=== PATIENT | male | born 1930 | race Caucasian/White ===

== ENCOUNTER 2018-12-01 12:51 | Observation (INO) | payer OTHER, MEDICARE ==
[~2018-12-01] VITALS: Ht 175.3 cm; Wt 61.8 kg
[2018-12-01] MEDS ORDERED: ACYC200 PO (14:11)
[2018-12-01] MEDS ORDERED: ATOR40TA PO (14:12)
[2018-12-01] MEDS ORDERED: Biotin1 MG PO (14:12)
[2018-12-01] MEDS ORDERED: Norvasc2.5 MG PO (14:12)
[2018-12-01] MEDS ORDERED: PRAZ1 PO (14:13)
[2018-12-01] MEDS ORDERED: OMEPRAZOLE20 MG PO (14:13)
[2018-12-01] MEDS ORDERED: Zantac150 MG PO (14:13)
[2018-12-01 14:14] LABS: BASOPHILS ABSOLUTE AUTO 0.05 K/mm3 (0.00-0.23); BASOPHILS PERCENT AUTO 1 % (0-2); EOSINOPHILS ABSOLUTE AUTO 0.16 K/mm3 (0.00-0.68); EOSINOPHILS PERCENT AUTO 4 % (0-6); Hematocrit 36.8 % (37.0-53.0); Hemoglobin 12.3 g/dL (13.5-17.5); IMMATURE GRAN ABSOLUTE AUTO 0.01 K/mm3 (0.00-0.10); IMMATURE GRAN PERCENT AUTO 0 % (0-1); LYMPHOCYTES PERCENT AUTO 23 % (21-46); MONOCYTES ABSOLUTE AUTO 0.51 K/mm3 (0.16-1.47); MONOCYTES PERCENT AUTO 12 % (4-13); Mean Corpuscular HGB 30.8 pg (26.0-34.0); Mean Corpuscular HGB Conc 33.4 g/dL (31.5-36.5); Mean Corpuscular Volume 92 fL (80-100); Mean Platelet Volume 9.5 fL (9.1-12.4); NEUTROPHILS ABSOLUTE AUTO 2.69 K/mm3 (1.96-9.15); NEUTROPHILS PERCENT AUTO 61 % (41-73); Platelet Count 135 K/mm3 (150-400); RDW Coefficient Variation 12.5 % (11.7-14.2); RDW Standard Deviation 42.7 fL (35.1-46.3); White Blood Cell Count 4.42 K/mm3 (4.00-11.30)
[2018-12-01] MEDS ORDERED: TIOT18 INH (14:14)
[2018-12-01 14:33] LABS: Alanine Aminotransfer (ALT/SGP 22 U/L (12-78); Albumin, Blood 3.8 g/dL (3.4-5.0); Albumin/Globulin Ratio 1.3 (0.8-1.8); Alk Phos 114 U/L (50-136); Anion Gap 5 mmol/L (6-16); Aspartate Aminotrans (AST/SGOT 34 U/L (12-37); Bilirubin, Total 0.7 mg/dL (0.1-1.0); Blood Urea Nitrogen 6 mg/dL (8-24); Bun/Creatinine Ratio 7.5 (12.0-20.0); CO2, Blood 25 mmol/L (21-32); Calcium, Blood 8.9 mg/dL (8.5-10.1); Chloride, Blood 103 mmol/L (98-108); Globulin, Blood 2.9 g/dL (2.2-4.0); Glomerular Filtration Rate >60 (60-); Glucose, Blood 100 mg/dL (70-99); Sodium, Blood 133 mmol/L (136-145); Total Protein, Blood 6.7 g/dL (6.4-8.2)
--- NOTE | 2018-12-01 16:44 | NUR ---
RECEIEVED REPORT FROM NAVA PARKINSON RN AT 1640. WILL TRANSFER TO ROOM 336.
--- NOTE | 2018-12-01 18:08 | NUR ---
SHIFT SUMMARY PATIENT IS PLEASANT AND COOPERATIVE WITH STAFF. ASSISTED WITH THE ADMISSION ASSESSMENT. CONTINUES ON IV FLUIDS FOR HYDRATION; NPO. APPROPRIATE WITH STAFF. WAS AT BEDSIDE UPON ADMIT AND HAS LEFT TO A HOTEL FOR THE NIGHT. WILL CONTINUE TO MONITOR AND PROVIDE CARE NEEDED.
--- NOTE | 2018-12-02 06:48 | NUR ---
Rn summary: Patient is alert and oriented. He states he is a little forgetful. Pt has been NPO. Pt is unable to swallow even fluids. Plan is for EGD today with Dr. Baum. Pt denies any pain. Pt has very dry mouth and he uses biotin and lemon swabs. Call light in reach.
--- NOTE | 2018-12-02 13:21 | NUR ---
12/02/18 132[address] [place] PATIENT DETERMINED TO BE ASA APPROPRIATE FOR PROPOFOL SEDATION PRIOR TO START OF PROCEDURE BY DR. Olivia Alexander Placed3-LEAD EKG REVIEWED WITH PHYSICIAN PRIOR TO START OF PROCEDURE.Patient to ENDO 1History, Chart, Medications and Allergies reviewed before start of procedure.MONITOR INTACT WITH CONTINUOUS PULSE OXIMETRY AND INTERMITTENT BP.Dentures removed and placed in cup. O2 VIA N/C INTACT THROUGHOUT SEDATION/PROCEDURE.
--- NOTE | 2018-12-02 13:22 | NUR ---
LUNG SOUNDS CLEAR.
--- NOTE | 2018-12-02 15:53 | NUR ---
PATIENT WANTED IV FLUIDS TURNED OFF BECAUSE HE IS NOW "ABLE TO DRINK". I EXPLAINED TO PATIENT THAT THE DOCTOR HAS NOT DISCONTINUED THE IV FLUIDS AND I NEED TO KEEP THEM RUNNING SO HE STATED THAT HE REFUSES TO HAVE THEM ANY LONGER. DISCONNECTED PATIENT FROM IV LR AR 1550 PER PATIENT REQUEST.
--- NOTE | 2018-12-02 15:56 | NUR ---
SHIFT SUMMARY THE PATIENT HAS HAD AN UNEVENTFUL DAY. WENT FOR AN UPPER SCOPE THIS AFTERNOON WITH DR BUITRAGO WITHOUT COMPLICATIONS. RETURNED TO ROOM AT APPROX 1400 AND SEVERAL SETS OF VITALS OBTAINED AND STABLE. PATIENT REQUESTED IV FLUIDS BE DISCONTINUED NOW THAT HE IS ABLE TO INTAKE ORAL FLUIDS DESPITE BEING EDUCATED THAT THE DOCTOR HAS THE IV FLUIDS ORDERED STILL. IV FLUIDS DISCONNECTED FROM PATIENT PER PATIENT REQUEST. PATIENT GIVEN CHICKEN BROTH AND WATER FOR A SNACK AND WILL HAVE A CLEAR LIQUID DIET FOR DINNER. WILL CONTINUE TO MONITOR AND PROVIDE CARE NEEDED
--- NOTE | 2018-12-02 16:48 | NUR ---
PATIENT CALLED ME INTO HIS ROOM. HE WAS REQUESTING THAT HIS IV ACCESS BE REMOVED SINCE HE IS NO LONGER RECIEVING IV FLUIDS (SINCE HE IS REFUSING THEM). I EXPLAINED I DONT HAVE AN ORDER TO REMOVE IT AND HE INSISTED. I THEN INFORMED THE PATIENT THAT HE HAS AN IMPORTANT MEDICATION DUE IN THE MORNING THAT IS GIVEN IN THE IV FOR THE ACID REFLUX. AT THAT TIME THE PATIENT WAS OKAY WITH LEAVING THE IV IN PLACE.
--- NOTE | 2018-12-03 06:16 | NUR ---
Rn summary: Patient is alert and oriented. Pt is up independantly in room. Pt has denied any discomfort this shift. He has been taking clear liquids without difficulty. Pt states he has slept well. Vital signs are stable. Pt is anxious to be discharged. Call light in reach. Uses appropriaely.
--- NOTE | 2018-12-03 14:30 | NUR ---
PT LEFT UNIT AT 1330 VIA WHEELCHAIR. DISCHARGE INSTRUCTIONS PROVIDED, PERSONAL BELONGINGS WITH PT.
== END 2018-12-03 13:32 | disposition home or self-care (01) ==
LOC: ER 12:51 → MEDS 12:52 → ENPENDDIS 12-03 11:56 → MEDS 12-03 13:32
PROVIDERS: Internal Medicine Gastroenterology; Physician Assistant; ADMIT Family Medicine
PROC: 0D758ZZ Dilation of Esophagus, Via Natural or Artificial Opening Endoscopic (ICD-10-PCS; principal; 2018-12-02 09:00)
DX: R13.10 Dysphagia, unspecified (principal); K21.0 Gastro-esophageal reflux disease with esophagitis; I10 Essential (primary) hypertension; D64.9 Anemia, unspecified; D69.6 Thrombocytopenia, unspecified; E87.1 Hypo-osmolality and hyponatremia; E78.5 Hyperlipidemia, unspecified; J44.9 Chronic obstructive pulmonary disease, unspecified; Z88.0 Allergy status to penicillin; Z79.899 Other long term (current) drug therapy; Z87.891 Personal history of nicotine dependence; Z87.19 Personal history of other diseases of the digestive system; Z90.49 Acquired absence of other specified parts of digestive tract
CPT/HCPCS: 80053; 85025; 94640; 94760; 96360; 96361; 96374; 96376; 99284-25; C1726; C9113; G0378; J2704; J7120

== ENCOUNTER 2020-07-25 21:29 | Observation (INO) | payer OTHER, MEDICARE ==
[~2020-07-25] VITALS: Ht 182.9 cm; Wt 67.9 kg
[~2020-07-25 21:29] MED LIST: ACYC200 PO; ATOR40TA PO; Biotin1 MG PO; Norvasc2.5 MG PO; OMEPRAZOLE20 MG PO; PRAZ1 PO; TIOT18 INH; Zantac150 MG PO
[2020-07-25 23:13] LABS: BASOPHILS ABSOLUTE AUTO 0.02 K/mm3 (0.00-0.23); BASOPHILS PERCENT AUTO 0 % (0-2); EOSINOPHILS ABSOLUTE AUTO 0.02 K/mm3 (0.00-0.68); EOSINOPHILS PERCENT AUTO 0 % (0-6); Hematocrit 31.4 % (37.0-53.0); Hemoglobin 10.4 g/dL (13.5-17.5); IMMATURE GRAN ABSOLUTE AUTO 0.04 K/mm3 (0.00-0.10); IMMATURE GRAN PERCENT AUTO 1 % (0-1); LYMPHOCYTES PERCENT AUTO 5 % (21-46); MONOCYTES ABSOLUTE AUTO 0.49 K/mm3 (0.16-1.47); MONOCYTES PERCENT AUTO 6 % (4-13); Mean Corpuscular HGB Conc 33.1 g/dL (31.5-36.5); Mean Corpuscular Volume 88 fL (80-100); Mean Platelet Volume 9.8 fL (9.1-12.4); NEUTROPHILS ABSOLUTE AUTO 6.93 K/mm3 (1.96-9.15); NEUTROPHILS PERCENT AUTO 88 % (41-73); Platelet Count 158 K/mm3 (150-400); RDW Coefficient Variation 14.3 % (11.7-14.2); RDW Standard Deviation 46.4 fL (35.1-46.3); Red Blood Cell Count 3.59 M/mm3 (4.30-5.90)
[2020-07-25] MEDS ORDERED: Acetaminophen325 M1 PO (23:29)
[2020-07-25 23:31] LABS: Alanine Aminotransfer (ALT/SGP 33 U/L (12-78); Albumin, Blood 2.5 g/dL (3.4-5.0); Albumin/Globulin Ratio 0.7 (0.8-1.8); Alk Phos 248 U/L (50-136); Anion Gap 3 mmol/L (6-16); Aspartate Aminotrans (AST/SGOT 39 U/L (12-37); Bilirubin, Total 0.6 mg/dL (0.1-1.0); Blood Urea Nitrogen 34 mg/dL (8-24); Bun/Creatinine Ratio 40.6 (12.0-20.0); CO2, Blood 29 mmol/L (21-32); Calcium, Blood 8.2 mg/dL (8.5-10.1); Chloride, Blood 98 mmol/L (98-108); Creatinine, Blood 0.84 mg/dL (0.60-1.20); Globulin, Blood 3.4 g/dL (2.2-4.0); Glomerular Filtration Rate >60 (60-); Glucose, Blood 132 mg/dL (70-99); Potassium, Blood 4.6 mmol/L (3.5-5.5); Sodium, Blood 130 mmol/L (136-145); Total Protein, Blood 5.9 g/dL (6.4-8.2)
[2020-07-25] MEDS ORDERED: CITA20 PO (23:31)
[2020-07-25] MEDS ORDERED: DIVA250EC PO (23:31)
[2020-07-25] MEDS ORDERED: FAMO20 PO (23:32)
[2020-07-25] MEDS ORDERED: FURO20 PO (23:32)
[2020-07-25] MEDS ORDERED: TRAM50 PO (23:33)
[2020-07-25] MEDS ORDERED: MELA3 PO (23:33)
[2020-07-25] MEDS ORDERED: TRAZ50 PO (23:34)
--- NOTE | 2020-07-26 04:47 | NUR ---
PATIENT IS A NEW ADMIT FROM THE ED. THREE PERSON TRANSFER FROM [facility] TO BED. ALERT TO SELF. NO MONTH, YEAR, PRESIDENT, OR FACILITY. HX DEMENTIA. REPORTS LEFT SIDE RIB/BACK PAIN WITH MOVEMENT FROM F X TWO AT [facility]. SCAB/BRUISING TO BACK OF HEAD, STERNUM, LEFT SIDE RIBS/BACK, AND SCATTER T/O EXTREMITIES. ON ROOM AIR. VSS/AFEBRILE. DENIES SOB, AND N/V. ORIENTED TO ROOM AND CALL LIGHT SYSTEM. BED ALARM ACTIVATED.
--- NOTE | 2020-07-26 05:09 | NUR ---
URINE SAMPLE COLLECTED AND SENT TO LAB. BED EXIT ATTEMPT X ONE. PATIENT ATTEMPTING TO GET OOB. REPOSITIONED AND ALARM ACTIVATED.
[2020-07-26 05:18] LABS: Source, Urine Clean Catch
[2020-07-26 05:21] LABS: Bilirubin, Urine Neg (Neg); Blood, Urine Neg (Neg); Glucose Qualitative, Urine Neg (Neg); Ketones, Urine Neg (Neg); Leukocyte Esterase, Urine Neg (Neg); Nitrite, Urine Neg (Neg); Protein, Urine 2+ (Neg); Specific Gravity, Urine 1.015 (1.003-1.022); Urobilinogen, Urine NORM (Normal)
[2020-07-26 05:26] LABS: Appearance, Urine Clear (Clear); Bacteria Not Seen /hpf; Color, Urine Yellow (P-Yellow); Other Crystals Few /hpf; Red Blood Cells, Urine Not Seen /hpf (0-2); Squamous Epithelial Cells Not Seen /hpf (Few); White Blood Cells, Urine Rare /hpf (0-5)
[2020-07-26 07:42] LABS: BASOPHILS ABSOLUTE AUTO 0.03 K/mm3 (0.00-0.23); BASOPHILS PERCENT AUTO 0 % (0-2); EOSINOPHILS ABSOLUTE AUTO 0.03 K/mm3 (0.00-0.68); EOSINOPHILS PERCENT AUTO 0 % (0-6); Hematocrit 34.2 % (37.0-53.0); Hemoglobin 11.1 g/dL (13.5-17.5); IMMATURE GRAN ABSOLUTE AUTO 0.05 K/mm3 (0.00-0.10); IMMATURE GRAN PERCENT AUTO 1 % (0-1); LYMPHOCYTES ABSOLUTE AUTO 0.65 K/mm3 (0.84-5.20); LYMPHOCYTES PERCENT AUTO 8 % (21-46); MONOCYTES ABSOLUTE AUTO 0.73 K/mm3 (0.16-1.47); MONOCYTES PERCENT AUTO 9 % (4-13); Mean Corpuscular HGB 28.7 pg (26.0-34.0); Mean Corpuscular HGB Conc 32.5 g/dL (31.5-36.5); Mean Corpuscular Volume 88 fL (80-100); Mean Platelet Volume 9.8 fL (9.1-12.4); NEUTROPHILS ABSOLUTE AUTO 6.44 K/mm3 (1.96-9.15); NEUTROPHILS PERCENT AUTO 81 % (41-73); Platelet Count 183 K/mm3 (150-400); RDW Coefficient Variation 14.4 % (11.7-14.2); RDW Standard Deviation 46.2 fL (35.1-46.3); Red Blood Cell Count 3.87 M/mm3 (4.30-5.90); White Blood Cell Count 7.93 K/mm3 (4.00-11.30)
[2020-07-26 07:55] LABS: Alanine Aminotransfer (ALT/SGP 29 U/L (12-78); Albumin, Blood 2.3 g/dL (3.4-5.0); Albumin/Globulin Ratio 0.7 (0.8-1.8); Alk Phos 235 U/L (50-136); Anion Gap 4 mmol/L (6-16); Aspartate Aminotrans (AST/SGOT 30 U/L (12-37); Bilirubin, Total 0.6 mg/dL (0.1-1.0); Blood Urea Nitrogen 35 mg/dL (8-24); Bun/Creatinine Ratio 39.9 (12.0-20.0); CO2, Blood 29 mmol/L (21-32); Calcium, Blood 8.4 mg/dL (8.5-10.1); Chloride, Blood 98 mmol/L (98-108); Creatinine, Blood 0.88 mg/dL (0.60-1.20); Globulin, Blood 3.5 g/dL (2.2-4.0); Glomerular Filtration Rate >60 (60-); Glucose, Blood 98 mg/dL (70-99); Potassium, Blood 4.8 mmol/L (3.5-5.5); Sodium, Blood 131 mmol/L (136-145); Total Protein, Blood 5.8 g/dL (6.4-8.2)
[2020-07-26 10:05] LABS: International Normalized Ratio 1.35; Prothrombin Time Results 14.3 Sec (9.7-11.5)
--- NOTE | 2020-07-26 12:38 | NUR ---
DR STEPHENS HERE TO SEE PT THIS AM. PER DR STEPHENS, PT CLEAR TO GO BACK TO [facility]. [facility] RN RASHAUN UPDATED. [facility] CALLED BY [facility] RN, TO ARRANGE FOR PT TO RETURN. [facility] TO BE HERE TOMORROW AT 10:30 TO TAKE PT [facility] SIERRA NOTIFIED OF P/U SCHEDULE AND DETAILS. OUR HOSPITALIST IS TO CALL THE HOSPITALIST AT THE [facility], BEFORE PT LEAVES, AND GIVE STATUS UPDATE. DR SIERRA TO CALL DR FAN AT [facility]; [phone], EXT [phone]. [facility] NURSE, CATHERINE, TO NOTIFY DR FAN.
[2020-07-26 15:43] LABS: Hematocrit 35.5 % (37.0-53.0); Hemoglobin 11.5 g/dL (13.5-17.5); Mean Corpuscular HGB Conc 32.4 g/dL (31.5-36.5); Mean Corpuscular Volume 89 fL (80-100); Mean Platelet Volume 9.7 fL (9.1-12.4); Platelet Count 201 K/mm3 (150-400); RDW Coefficient Variation 14.3 % (11.7-14.2); RDW Standard Deviation 46.8 fL (35.1-46.3); Red Blood Cell Count 3.97 M/mm3 (4.30-5.90); White Blood Cell Count 7.97 K/mm3 (4.00-11.30)
--- NOTE | 2020-07-26 16:36 | NUR ---
SHIFT SUMMARY PT RESTING QUIETLY AT START OF SHIFT, BUT WOKE EASILY DURING REPORT. PT IS VERY PLEASANT BUT A&O TO SELF AND ONLY. PT WAS CO-OP MOST OF THE DAY, BUT SEEMS TO BE FEELING A LITTLE BETTER AND IS GETTING OOB FREQUENTLY THS LAST COUPLE OF HOURS. PT ABLE TO WALK WITH P/T AROUND HIS RM TODAY USING FWW AND GB FOR SAFETY. PT HAS BEEN UP TO BSC TO VOID A COUPLE OF TIMES WELL. PT HAS REMAINED CONTINENT OF BOWEL AND BLADDER. PT IS VERY CONFUSED WITH ADVANCED DEMENTIA. PT IS TO RETURN TO [facility] TO BE HERE FOR CANOE MAKER AT 10:30. DR SIERRA TO CALL [facility] HOSPITALIST, DR FAN, PRIOR TO D/C AND PROVIDE UPDATE. PT HAS BEEN ABLE TO FEED HIMSELF, DOING WELL WITH PUREED DIET. TYLENOL GIVEN EARLIER FOR L RIB PAIN. PT ABLE TO BE MORE MOBILE WITH LESS PAIN AFTER TYLENOL. CALL LT IN REACH. BED ALARM ON FOR SAFETY.
--- NOTE | 2020-07-27 01:25 | NUR ---
PATIENT TRYING TO GET OOB ACTIVATING BED ALARM. ALERT TO SELF WITH HX SEVERE DEMENTIA. HAVING AUDITORY HALLUCINATIONS.
--- NOTE | 2020-07-27 01:44 | NUR ---
BED EXIT ATTEMPT ACTIVATING BED ALARM. PATIENT NOT ABLE TO REORIENT REPORTING HE DOES NOT KNOW WHERE HE IS. LEGS BACK IN BED AND REPOSITION AND ALARM ACTIVATED.
--- NOTE | 2020-07-27 03:37 | NUR ---
SHIFT SUMMARY PATIENT HAD NO ACUTE CHANGES OBSERVED. ALERT TO SELF AND ONLY. BEDREST. REPORTING LEFT SIDE RIB PAIN W/MOVEMENT X TWO AND TYLENOL AND FENTANYL 25MCG GIVEN PER EMAR. PIV REMAINS INTACT. CONFUSED WITH ADVANCED DEMENTIA AND MULTIPLE OOB ATTEMPTS T/O SHIFT ACTIVATING BED ALARM. PATIENT NOT ABLE TO REORIENT AT THIS TIME. TOOK MEDICATION WHOLE WITH WATER. DISCHARGE TO [facility] IN AM VIA [place]. DOES NOT USE CALL LIGHT. BED IN LOWEST POSITION AND ALARM ACTIVATED. WILL CONTINUE TO MONITOR UNTIL DAY SHIFT NURSE ASSUMES CARE.
--- NOTE | 2020-07-27 05:00 | NUR ---
PATIENT REPORTS HE IS IN A CAR AND CAN'T GET OUT AND NEEDS HELP. NOT ABLE TO REORIENT AT THIS TIME. BED ALARM ACTIVATED. WILL CONTINUE TO MONITOR. AUDITORY AND VISUAL HALLUCINATIONS.
--- NOTE | 2020-07-27 10:40 | NUR ---
DISCHARGE SUMMARY PATIENT DISCHARGED TO [facility]. PATIENT ALERT TO SELF THIS SHIFT. PATIENT FRIENDLY AND COOPERATIVE WITH CARE. PATIENT WAKES EASILY TO VERBAL STIMULI. PATIENT PAINFUL WHEN MOVED, THEN QUICKLY RETURNS TO STATING NO PAIN AT REST. PATIENT SLEEPING THROUGH MUCH OF THIS AM. PATIENT ALERT AND AWAKE TO TAKE MORNING MEDICATIONS. PATIENT TRANSPORTED VIA GURNEY/AMBULANCE. IV REMOVED PRIOR TO DISCHARGE. PATIENT BELONGINGS WITH PATIENT UPON DISCHARGE.
== END 2020-07-27 10:35 ==
LOC: ER 21:29 → MEDS 21:30 → ENPENDDIS 07-27 08:13 → MEDS 07-27 10:35
PROVIDERS: Emergency Medicine; Hospitalist; Internal Medicine; ADMIT Surgery
DX: S22.42XA Multiple fractures of ribs, left side, initial encounter for closed fracture (principal); S01.91XA Laceration without foreign body of unspecified part of head, initial encounter; S36.031A Moderate laceration of spleen, initial encounter; I11.0 Hypertensive heart disease with heart failure; I50.32 Chronic diastolic (congestive) heart failure; R19.09 Other intra-abdominal and pelvic swelling, mass and lump; I71.2 Thoracic aortic aneurysm, without rupture; F03.90 Unspecified dementia, unspecified severity, without behavioral disturbance, psychotic disturbance, mood disturbance, and anxiety; J81.1 Chronic pulmonary edema; J90 Pleural effusion, not elsewhere classified; I35.0 Nonrheumatic aortic (valve) stenosis; K21.9 Gastro-esophageal reflux disease without esophagitis; Z66 Do not resuscitate; E78.5 Hyperlipidemia, unspecified; F32.9 Major depressive disorder, single episode, unspecified; W18.30XA Fall on same level, unspecified, initial encounter; Y92.192 Bathroom in other specified residential institution as the place of occurrence of the external cause; Z88.0 Allergy status to penicillin; Z88.8 Allergy status to other drugs, medicaments and biological substances; Z87.891 Personal history of nicotine dependence
CPT/HCPCS: 36415; 70450; 71045; 72125; 72128; 73120; 74177; 80053; 81001; 83690; 85025; 85027; 85610; 90471; 90714; 96372; 97112; 97162; 97530; 99285-25; A9270; G0378; J1650; J3010; Q9967